=== PATIENT | female | born 1955 | race Caucasian/White ===

== ENCOUNTER 2019-06-03 10:33 | Emergency (ER) | payer OTHER ==
[~2019-06-03] VITALS: Ht 167.6 cm; Wt 64.4 kg
--- OUTSIDE RECORDS SUMMARY | 2019-06-03 10:36 | XMS REPORT ---
[facility] Address Unknown Phone Unavailable Care Team Providers Care Research Worker Kitchen Name Role Phone Unavailable Unavailable Payers Payer Name Policy Type Policy Number Effective Date Expiration Date Problems This patient has no known problems. Allergies, Adverse Reactions, Alerts Allergy Name Allergy Type Status Severity Reaction(s) Onset Date Inactive Date Treating Clinician Comments No Known Allergies DA Active U 2019-03-27 00:00:00 No Known Allergies DA Active U 2018-04-11 00:00:00 Medications This patient has no known medications. Results Test Description Test Time Test Comments Text Results Atomic Results Result Comments POTASSIUM 2019-04-04 12:26:00 POTASSIUM (test code=K) 3.0 mmol/L 3.5-5.1 BASIC METABOLIC [id number] 07:20:00* Test Item Value Reference Range Comments SODIUM (test code=NA) 132 mmol/L 136-145 RESULT VERIFIED BY REPEAT ANALYSIS POTASSIUM (test code=K) 2.6 mmol/L 3.5-5.1 Results called to [id number] by RUPERT 04/04/19 0720Critical results verified and read back by Nurse? Y CHLORIDE (test code=CL) 94.0 mmol/L 98-107 CARBON DIOXIDE (test code=CO2) 31.0 mmol/L 21-32 ANION GAP (test code=GAP) 9.6 10-20 GLUCOSE (test code=GLU) 92 mg/dL 74-106 BLOOD UREA NITROGEN (test code=BUN) 2 mg/dL 7-18 GLOMERULAR FILTRATION RATE (test code=GFR) > 60 mL/min >=60 Estimated GFR by using Modified MDRD formula.Chronic kidney disease is defined as either kidney damageor GFR <60 mL/min/1.73 m2 for >3 months. CREATININE (test code=CREAT) 0.30 mg/dL 0.55-1.02 Note change in reference range due to change in reagent. BUN/CREATININE RATIO (test code=BUN/CREA) 6.7 10-20 CALCIUM (test code=CA) 8.8 mg/dL 8.5-10.1 BASIC METABOLIC [id number] 09:23:00* Test Item Value Reference Range Comments SODIUM (test code=NA) 124 mmol/L 136-145 Results called to ESTEFANIA/NOF9132 by V.LAB.LDB 04/03/19 0920Critical results verified and read back by Nurse? Y POTASSIUM (test code=K) 3.5 mmol/L 3.5-5.1 CHLORIDE (test code=CL) 86.0 mmol/L 98-107 CARBON DIOXIDE (test code=CO2) 27.0 mmol/L 21-32 ANION GAP (test code=GAP) 14.5 10-20 GLUCOSE (test code=GLU) 96 mg/dL 74-106 BLOOD UREA NITROGEN (test code=BUN) 3 mg/dL 7-18 GLOMERULAR FILTRATION RATE (test code=GFR) > 60 mL/min >=60 Estimated GFR by using Modified MDRD formula.Chronic kidney disease is defined as either kidney damageor GFR <60 mL/min/1.73 m2 for >3 months. CREATININE (test code=CREAT) 0.40 mg/dL 0.55-1.02 Note change in reference range due to change in reagent. BUN/CREATININE RATIO (test code=BUN/CREA) 7.5 10-20 CALCIUM (test code=CA) 9.0 mg/dL 8.5-10.1 BASIC METABOLIC [id number] 07:30:00* Test Item Value Reference Range Comments SODIUM (test code=NA) 123 mmol/L 136-145 Results called to WENDY [id number] V.LAB.OA 04/02/19 0730Critical results verified and read back by Nurse? Y POTASSIUM (test code=K) 3.4 mmol/L 3.5-5.1 CHLORIDE (test code=CL) 88.0 mmol/L 98-107 CARBON DIOXIDE (test code=CO2) 24.0 mmol/L 21-32 ANION GAP (test code=GAP) 14.4 10-20 GLUCOSE (test code=GLU) 84 mg/dL 74-106 BLOOD UREA NITROGEN (test code=BUN) 6 mg/dL 7-18 GLOMERULAR FILTRATION RATE (test code=GFR) > 60 mL/min >=60 Estimated GFR by using Modified MDRD formula.Chronic kidney disease is defined as either kidney damageor GFR <60 mL/min/1.73 m2 for >3 months. CREATININE (test code=CREAT) 0.40 mg/dL 0.55-1.02 Note change in reference range due to change in reagent. BUN/CREATININE RATIO (test code=BUN/CREA) 15.0 10-20 CALCIUM (test code=CA) 8.8 mg/dL 8.5-10.1 [id number] 07:30:00* Test Item Value Reference Range Comments MAGNESIUM (test code=MAG) 1.9 mg/dL 1.8-2.4 [id number] 16:49:00* Test Item Value Reference Range Comments POTASSIUM (test code=K) 2.9 mmol/L 3.5-5.1 Results called to SIY0543 by V.LAB.SPR 04/01/19 1649Critical results verified and read back by Nurse? Y [id number] 16:49:00* Test Item Value Reference Range Comments MAGNESIUM (test code=MAG) 2.1 mg/dL 1.8-2.4 BASIC METABOLIC [id number] 07:32:00* Test Item Value Reference Range Comments SODIUM (test code=NA) 122 mmol/L 136-145 Results called to GFR5710 by V.LAB.KA 04/01/19 0730Critical results verified and read back by Nurse? Y POTASSIUM (test code=K) 2.7 mmol/L 3.5-5.1 Results called to PHJ0504 by V.LAB.KA 04/01/19 0731Critical results verified and read back by Nurse? Y CHLORIDE (test code=CL) 85.0 mmol/L 98-107 CARBON DIOXIDE (test code=CO2) 24.0 mmol/L 21-32 ANION GAP (test code=GAP) 15.7 10-20 GLUCOSE (test code=GLU) 82 mg/dL 74-106 BLOOD UREA NITROGEN (test code=BUN) 7 mg/dL 7-18 GLOMERULAR FILTRATION RATE (test code=GFR) > 60 mL/min >=60 Estimated GFR by using Modified MDRD formula.Chronic kidney disease is defined as either kidney damageor GFR <60 mL/min/1.73 m2 for >3 months. CREATININE (test code=CREAT) 0.30 mg/dL 0.55-1.02 Note change in reference range due to change in reagent. BUN/CREATININE RATIO (test code=BUN/CREA) 23.3 10-20 CALCIUM (test code=CA) 8.4 mg/dL 8.5-10.1 [id number] 07:32:00* Test Item Value Reference Range Comments MAGNESIUM (test code=MAG) 1.7 mg/dL 1.8-2.4 BASIC METABOLIC [id number] 18:43:00* Test Item Value Reference Range Comments SODIUM (test code=NA) 120 mmol/L 136-145 Results called to [id number] by Gabriel.LAB 03/31/19 1837Critical results verified and read back by Nurse? Y POTASSIUM (test code=K) 3.0 mmol/L 3.5-5.1 CHLORIDE (test code=CL) 84.0 mmol/L 98-107 CARBON DIOXIDE (test code=CO2) 26.0 mmol/L 21-32 ANION GAP (test code=GAP) 13.0 10-20 GLUCOSE (test code=GLU) 89 mg/dL 74-106 BLOOD UREA NITROGEN (test code=BUN) 9 mg/dL 7-18 GLOMERULAR FILTRATION RATE (test code=GFR) > 60 mL/min >=60 Estimated GFR by using Modified MDRD formula.Chronic kidney disease is defined as either kidney damageor GFR <60 mL/min/1.73 m2 for >3 months. CREATININE (test code=CREAT) 0.50 mg/dL 0.55-1.02 Note change in reference range due to change in reagent. BUN/CREATININE RATIO (test code=BUN/CREA) 18.0 10-20 CALCIUM (test code=CA) 8.6 mg/dL 8.5-10.1 BASIC METABOLIC [id number] 11:56:00* Test Item Value Reference Range Comments SODIUM (test code=NA) 119 mmol/L 136-145 Results called to [id number] by V.LAB.RAP 03/31/19 1154Critical results verified and read back by Nurse? Y POTASSIUM (test code=K) 3.5 mmol/L 3.5-5.1 CHLORIDE (test code=CL) 81.0 mmol/L 98-107 CARBON DIOXIDE (test code=CO2) 26.0 mmol/L 21-32 ANION GAP (test code=GAP) 15.5 10-20 GLUCOSE (test code=GLU) 94 mg/dL 74-106 BLOOD UREA NITROGEN (test code=BUN) 11 mg/dL 7-18 GLOMERULAR FILTRATION RATE (test code=GFR) > 60 mL/min >=60 Estimated GFR by using Modified MDRD formula.Chronic kidney disease is defined as either kidney damageor GFR <60 mL/min/1.73 m2 for >3 months. CREATININE (test code=CREAT) 0.50 mg/dL 0.55-1.02 Note change in reference range due to change in reagent. BUN/CREATININE RATIO (test code=BUN/CREA) 22.0 10-20 CALCIUM (test code=CA) 9.2 mg/dL 8.5-10.1 PT WAS A CODE JOSHUA, COME BACK LATER PER OBS. RNS RyLAB. 0719- CT HEAD/BRAIN W/O [id number] 06:00:00 Name: ZOEY SOLORZANO [facility] : 1955 Age/S: 63 / F [address] [facility] Unit #: [id number] Loc: [place] [address] Phys: Torey Hale MD Acct: [id number] Dis Date: Status: ADM IN PHONE #: [phone] Exam Date: 03/31/2019 0532 FAX #: [phone] Reason: S/P FALL EXAMS: CPT CODE: [id number] CT HEAD/BRAIN W/O CONT 50835 EXAM: - CT HEAD/BRAIN W/O CONT LOCATION: C3 HISTORY: 63 years-year old Female with S/P FALL TECHNIQUE: Computerized tomography images from the skull base to the vertex were obtained. Coronal and sagittal reformatted images are provided. This exam was performed according to our departmental dose- optimization program, which includes automated exposure control, adjustment of the mA and/or kV according to patient size and/or use of iterative reconstruction technique COMPARISON: None FINDINGS: Brain: The brain parenchymal architecture is unremarkable. The brain parenchyma is age appropriate. There is no e vidence of an acute territorial infarct. Hemorrhage: There i s no CT evidence of acute intracranial hemorrhage. Mass/edema: The re is no CT evidence of mass effect, midline shift, or parenchymal edema. Ventricles: There is no evidence of hydrocephalus. B ones: There is no evidence of acute displaced calvarial fracture. Sinuses: The visualized portions of the paranasal sinuses and mastoid air cells are free of significant opacification. Other/Soft Tissues: Unremarkable. IMPRESSION: 1. No CT evidence o f acute intracranial abnormality. PAGE 1 Signed Report (CONTINUED) Name: ZOEY SOLORZANO [facility] : 1955 Age/S: 63 / F [address] Unit #: [id number] [place] [address] Phys: Torey Hale MD Acct: [id number] Dis Date: Status: ADM IN PHONE #: [phone] Exam Date: 03/31/2019 0532 FAX #: [phone] Reason: S/P FALL EXAMS: CPT CODE: [id number] CT HEAD/BRAIN W/O CONT 37898 <Continued> at 0600 Reported and signed by: Dexter Ram M.D. CC: Torey Hale MD; Loulou Jones MD; Dr. Alem Triana; Ana Lilia Lugo MD Technologist:Christoph Chapin, RT(R)(CT) CTDI: DLP: Trnscb Date/Time: 03/31/2019 (06) KrishnaHV2 Orig Print D/T: S: 03/31/2019 (0603) CTDI: DLP: PAGE 2 Signed Report [id number] 21:51:00* Test Item Value Reference Range Comments SODIUM (test code=NA) 118 mmol/L 136-145 Results called to [id number] by V.LAB. 03/30/19 2151Critical results verified and read back by Nurse? Y [id number] 20:38:00* Test Item Value Reference Range Comments GLUBED (test code=GLUBED) 158 mg/dL 74-106 Performed by certified scrubber operator at [facility] UR NA,[id number] 19:27:00* Test Item Value Reference Range Comments UR NA,RANDOM (test code=ITA) 125 mmol/L 20-110 UR OSMOLALITY [id number] 19:27:00* Test Item Value Reference Range Comments UR OSMOLALITY RANDOM (test code=OSMOU) 424 mOsm/kg 48-962 UR NA,[id number] 19:11:00* Test Item Value Reference Range Comments UR NA,RANDOM (test code=ITA) 125 mmol/L 20-110 UR OSMOLALITY [id number] 19:11:00* Test Item Value Reference Range Comments UR OSMOLALITY RANDOM (test code=OSMOU) mOsm/kg 48-962 BASIC METABOLIC [id number] 16:22:00* Test Item Value Reference Range Comments SODIUM (test code=NA) 117 mmol/L 136-145 Results called to [id number] by V.LAB. 03/30/19 1622Critical results verified and read back by Nurse? Y POTASSIUM (test code=K) 3.4 mmol/L 3.5-5.1 CHLORIDE (test code=CL) 78.0 mmol/L 98-107 CARBON DIOXIDE (test code=CO2) 26.0 mmol/L 21-32 ANION GAP (test code=GAP) 16.4 10-20 GLUCOSE (test code=GLU) 139 mg/dL 74-106 BLOOD UREA NITROGEN (test code=BUN) 6 mg/dL 7-18 GLOMERULAR FILTRATION RATE (test code=GFR) > 60 mL/min >=60 Estimated GFR by using Modified MDRD formula.Chronic kidney disease is defined as either kidney damageor GFR <60 mL/min/1.73 m2 for >3 months. CREATININE (test code=CREAT) 0.40 mg/dL 0.55-1.02 Note change in reference range due to change in reagent. BUN/CREATININE RATIO (test code=BUN/CREA) 15.0 10-20 CALCIUM (test code=CA) 9.2 mg/dL 8.5-10.1 - XR CHEST 2 [id number] 15:58:00 FAX: Loulou Humphries MD [phone] [place]: St: ADM FAX: Ree Lynn VASCULAR ULTRASOUND TECHNOLOGIST FAX: Alem Lima [phone] FAX: Ana Lilia Holguin [phone] Name: JULIAN SOLORZANO [facility] : 1955 Age/S: 63/F [address] [facility] Unit #: [id number] Loc: V.3 [address] [place] [address] Phys: Ree Dominique NP Acct: [id number] Dis Date: Status: ADM IN PHONE #: [phone] Exam D ate: 03/30/2019 1052 FAX #: [phone] Reason: S OB, COPD EXAMS: CPT CODE: [id number] XR CHEST 2 V 81480 HISTORY: Shortness of breath, COPD TECHNIQUE: PA and lateral chest x-ray; submitted for interpretation at 1555 hours. COMPARISON: 03/27/19 FINDINGS: No airspace consolidation or pleural effusion. Mild pulmonary hyperin flation, possible COPD. Normal heart size. Mediastinal silhouette is unrem arkable. Thoracic spondylosis. IMPRESSION: No acute findings or significant interval change. at 1558 Reported and si gned by: Mana Banks D.O. CC: Loulou Jones MD; Laura Dominique NP; Dr. Alem Triana; Ana Lilia Lugo MD Technologist: PRIMITIVO MORTENSEN RT[facility]R) [facility] Date/Time/By: 03/30/2019 (1551) : By: [email or web address] O rig Print D/T: S: 03/30/2019 (8424) PAGE 1 Signed Report COMPREHENSIVE METABOLIC [id number] 08:18:00* Test Item Value Reference Range Comments SODIUM (test code=NA) 126 mmol/L 136-145 POTASSIUM (test code=K) 3.3 mmol/L 3.5-5.1 CHLORIDE (test code=CL) 89.0 mmol/L 98-107 CARBON DIOXIDE (test code=CO2) 29.0 mmol/L 21-32 ANION GAP (test code=GAP) 11.3 10-20 GLUCOSE (test code=GLU) 79 mg/dL 74-106 BLOOD UREA NITROGEN (test code=BUN) 6 mg/dL 7-18 GLOMERULAR FILTRATION RATE (test code=GFR) > 60 mL/min >=60 Estimated GFR by using Modified MDRD formula.Chronic kidney disease is defined as either kidney damageor GFR <60 mL/min/1.73 m2 for >3 months. CREATININE (test code=CREAT) 0.50 mg/dL 0.55-1.02 Note change in reference range due to change in reagent. BUN/CREATININE RATIO (test code=BUN/CREA) 12.0 10-20 TOTAL PROTEIN (test code=PROT) 7.4 gram/dL 6.4-8.2 ALBUMIN (test code=ALB) 3.4 g/dL 3.4-5.0 GLOBULIN (test code=GLOB) 4.0 gram/dL 2.7-4.2 ALBUMIN/GLOBULIN RATIO (test code=A/G) 0.9 0.75-1.50 CALCIUM (test code=CA) 9.7 mg/dL 8.5-10.1 BILIRUBIN TOTAL (test code=BILT) 0.40 mg/dL 0.0-1.0 SGOT/AST (test code=AST) 20 IUnit/L 15-37 SGPT/ALT (test code=ALT) 26 IUnit/L 12-78 ALKALINE PHOSPHATASE TOTAL (test code=ALKP) 81 IUnit/L 45-117 Note change in reference range due to change in reagent. [id number] 16:36:00* Test Item Value Reference Range Comments GLUBED (test code=GLUBED) 131 mg/dL 74-106 Performed by certified scrubber operator at [facility] [id number] 12:18:00* Test Item Value Reference Range Comments GLUBED (test code=GLUBED) 99 mg/dL 74-106 Performed by certified scrubber operator at [facility] - CT MAXIFAC W/O [id number] 09:12:00 Name: ZOEY SOLORZANO [facility] : 1955 Age/S: 63 / F [address] Unit #: [id number] Loc: [place] [address] Phys: Damien Vann MD Acct: [id number] Dis Date: Status: ADM IN PHONE #: [phone] Exam Date: 03/29/2019 0854 FAX #: [phone] Reason: rhinosinusitis EXAMS: CPT CODE: [id number] [place] MAXIF[place] [address] HISTORY: COPD and hypoxia and rhinosinusitis. COMPARISON: None available. CT facial bones without contrast: Automated exposure control. Sinuses are clear of air-fluid levels. 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 Mild mucosal thickening of the left maxillary sinus. The thickness measured up to 6.3 mm on the floor and along the lateral wall measuring 5 mm. Maxillary ostia are widely patent. No isaias bullosa is noted. Nasal septal deviation is slight towards the left. No polyps are noted. TMJ are well situated. Mastoid air cells are clear with nonspecific sclerosis. No air-fluid levels are noted. Intraorbital contents are unremarkable. No intraconal air or retrobulbar hemorrhage. Symmetrical fossa of Rosenmueller. IMPRESSION: The sinuses are clear without air-fluid levels. Mild mucosal thickening of the left maxillary sinus as described along the floor as well along its lateral wall measuring up to 6.3 mm in thickness. Maxillary ostia are widely patent bilaterally. Calcified osteoma measuring 8.6 mm in the lateral left frontal sinus. No isaias bullosa. Nasal septal deviation is slight towards the left. at 0912 Reported and signed by: Kike Parada M.D. CC: Loulou Jones MD; Damien Vann M.D.; Dr. Sanju Triana; Ana Lilia Lugo MD Technologist:Nilsa Triana,RT(R),CT CTDI: DLP: T rnscb Date/Time: 03/29/2019 (911) t.SDR.TH4 Orig Print D /T: S: 03/29/2019 (915) CTDI: DLP: PAGE 1 Signed Report [id number] 07:25:00* Test Item Value Reference Range Comments GLUBED (test code=GLUBED) 104 mg/dL 74-106 Performed by certified scrubber operator at [facility] [id number] 20:22:00* Test Item Value Reference Range Comments GLUBED (test code=GLUBED) 185 mg/dL 74-106 Performed by certified scrubber operator at [facility] [id number] 16:45:00* Test Item Value Reference Range Comments GLUBED (test code=GLUBED) 107 mg/dL 74-106 Performed by certified scrubber operator at [facility] [id number] 11:49:00* Test Item Value Reference Range Comments GLUBED (test code=GLUBED) 116 mg/dL 74-106 Performed by certified scrubber operator at [facility] [id number] 11:19:00* Test Item Value Reference Range Comments GLUBED (test code=GLUBED) 110 mg/dL 74-106 Performed by certified scrubber operator at [facility] BASIC METABOLIC [id number] 06:30:00* Test Item Value Reference Range Comments SODIUM (test code=NA) 134 mmol/L 136-145 RESULT VERIFIED BY REPEAT ANALYSIS POTASSIUM (test code=K) 3.3 mmol/L 3.5-5.1 CHLORIDE (test code=CL) 101.0 mmol/L 98-107 CARBON DIOXIDE (test code=CO2) 25.0 mmol/L 21-32 ANION GAP (test code=GAP) 11.3 10-20 GLUCOSE (test code=GLU) 126 mg/dL 74-106 BLOOD UREA NITROGEN (test code=BUN) 7 mg/dL 7-18 GLOMERULAR FILTRATION RATE (test code=GFR) > 60 mL/min >=60 Estimated GFR by using Modified MDRD formula.Chronic kidney disease is defined as either kidney damageor GFR <60 mL/min/1.73 m2 for >3 months. CREATININE (test code=CREAT) 0.40 mg/dL 0.55-1.02 Note change in reference range due to change in reagent. BUN/CREATININE RATIO (test code=BUN/CREA) 17.5 10-20 CALCIUM (test code=CA) 9.2 mg/dL 8.5-10.1 B-TYPE NATRIURETIC [id number] 13:48:00* Test Item Value Reference Range Comments B-TYPE NATRIURETIC PEPTIDE (test code=BNP) 48.62 pgram/mL 0-100 CBC W/O [id number] 13:09:00* Test Item Value Reference Range Comments WHITE BLOOD CELL (test code=WBC) 10.6 K/mm3 4.5-12.5 RED BLOOD CELL (test code=RBC) 3.94 mill/mm3 3.7-5.2 HEMOGLOBIN (test code=HGB) 12.7 gram/dL 11.5-15.5 HEMATOCRIT (test code=HCT) 37.5 % 36.0-46.0 MEAN CELL VOLUME (test code=MCV) 95.2 fL 80-98 MEAN CELL HGB (test code=MCH) 32.2 picogram 27.0-33.0 MEAN CELL HGB CONCETRATION (test code=MCHC) 33.9 gram/dL 33.0-36.0 RED CELL DISTRIBUTION WIDTH (test code=RDW) 12.4 % 11.6-16.2 PLATELET COUNT (test code=PLT) 395 K/mm3 150-450 MEAN PLATELET VOLUME (test code=MPV) 9.2 fL 6.7-11.0 CBC W/O [id number] 12:56:00* Test Item Value Reference Range Comments WHITE BLOOD CELL (test code=WBC) K/mm3 4.5-12.5 RED BLOOD CELL (test code=RBC) mill/mm3 3.7-5.2 HEMOGLOBIN (test code=HGB) 12.7 gram/dL 11.5-15.5 HEMATOCRIT (test code=HCT) 37.5 % 36.0-46.0 MEAN CELL VOLUME (test code=MCV) fL 80-98 MEAN CELL HGB (test code=MCH) picogram 27.0-33.0 MEAN CELL HGB CONCETRATION (test code=MCHC) gram/dL 33.0-36.0 RED CELL DISTRIBUTION WIDTH (test code=RDW) % 11.6-16.2 PLATELET COUNT (test code=PLT) K/mm3 150-450 MEAN PLATELET VOLUME (test code=MPV) fL 6.7-11.0 BASIC METABOLIC [id number] 12:48:00* Test Item Value Reference Range Comments SODIUM (test code=NA) 129 mmol/L 136-145 POTASSIUM (test code=K) 3.2 mmol/L 3.5-5.1 CHLORIDE (test code=CL) 91.0 mmol/L 98-107 CARBON DIOXIDE (test code=CO2) 28.0 mmol/L 21-32 ANION GAP (test code=GAP) 13.2 10-20 GLUCOSE (test code=GLU) 86 mg/dL 74-106 BLOOD UREA NITROGEN (test code=BUN) 6 mg/dL 7-18 GLOMERULAR FILTRATION RATE (test code=GFR) > 60 mL/min >=60 Estimated GFR by using Modified MDRD formula.Chronic kidney disease is defined as either kidney damageor GFR <60 mL/min/1.73 m2 for >3 months. CREATININE (test code=CREAT) 0.50 mg/dL 0.55-1.02 Note change in reference range due to change in reagent. BUN/CREATININE RATIO (test code=BUN/CREA) 12.0 10-20 CALCIUM (test code=CA) 9.6 mg/dL 8.5-10.1 [id number] 12:48:00* Test Item Value Reference Range Comments TROPONIN-I (test code=TROPI) <0.015 ng/mL 0-0.045 BASIC METABOLIC [id number] 12:34:00* Test Item Value Reference Range Comments SODIUM (test code=NA) 129 mmol/L 136-145 POTASSIUM (test code=K) 3.2 mmol/L 3.5-5.1 CHLORIDE (test code=CL) 91.0 mmol/L 98-107 CARBON DIOXIDE (test code=CO2) mmol/L 21-32 ANION GAP (test code=GAP) 10-20 GLUCOSE (test code=GLU) mg/dL 74-106 BLOOD UREA NITROGEN (test code=BUN) mg/dL 7-18 GLOMERULAR FILTRATION RATE (test code=GFR) mL/min >=60 CREATININE (test code=CREAT) mg/dL 0.55-1.02 BUN/CREATININE RATIO (test code=BUN/CREA) 10-20 CALCIUM (test code=CA) mg/dL 8.5-10.1 [id number] 12:34:00* Test Item Value Reference Range Comments TROPONIN-I (test code=TROPI) ng/mL 0-0.045 - XR CHEST 1 [id number] 11:36:00 FAX: Anjel Robert MD [phone] [place]: St: REG FAX: Alem Lima [phone] FAX: Ana Lilia Holguin [phone] Name: ZOEY SOLORZANO [facility] : 1955 Age/S: 63/F [address] Unit #: [id number] Loc: [place] [address] Phys: Anjel Robert MD Acct: [id number] Dis Date: Status: REG ER PH ONE #: [phone] Exam Date: 03/27/2019 1127 FAX #: [phone] Reason: Shortness of Breath EXAMS: CPT CODE: [id number] XR CHEST 1 V 35050 HISTORY: Short ness of breath. COMPARISON: March 13, 2014. No acute infiltrates, effusion or congestion is noted. Hyperinflation. The cardiac and mediastinal silhouette are within normal limits. I MPRESSION: No acute infiltrates, effusion or congestion. at 1136 Reported and signed by: Kike Parada M.D. CC: Anjel Robert MD; Dr. Alem Triana; Ana Lilia Lugo MD Technologist: RT TESS(R) Trnscrd Date/Time/By: 11/2018 (1135) : By: [email or web address] Orig Print D/T: S: 03/27/2019 (4554) PAGE 1 Signed Report
[2019-06-03] MEDS ORDERED: IPRATROPIUM BROMIDE 0.02% 2.5 ML NEB NEB STA (10:38)
[2019-06-03] MEDS ORDERED: METHYLPREDNISOLONE SOD SUCC 125 MG/2ML VIAL IV STA (10:38)
[2019-06-03] MEDS ORDERED: ALBUTEROL SULF 0.083% NEB SOLN 3 ML NEB NEB STA (10:38)
--- NOTE | 2019-06-03 10:57 | NUR ---
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
[2019-06-03] MEDS ORDERED: MAGNESIUM SULFATE 2GM/50ML 50 ML IV ONE (11:30)
--- NOTE | 2019-06-03 12:10 | Diagnostic Imaging Report ---
EXAMINATION: CHEST 2 VIEWS INDICATION: Shortness of breath COMPARISON: None FINDINGS: TUBES and LINES: None. LUNGS: The lungs are mildly hyperinflated. Mild biapical pleural parenchymal thickening/scarring. No focal consolidation or pulmonary edema. PLEURA: No pleural effusion or pneumothorax. HEART AND MEDIASTINUM: The cardiomediastinal silhouette is normal in size and contour. BONES AND SOFT TISSUES: Compression deformity at likely T12 resulting in focal kyphosis. UPPER ABDOMEN: No free air under the diaphragm. IMPRESSION: Hyperinflated lungs. No focal pneumonia or pulmonary edema. Age-indeterminate compression fracture at T12. If the patient has corresponding point tenderness, MRI could be considered to assess for acuity and candidacy for vertebral augmentation. Signed by: Mitchell Pryor MD on 06/03/2019 12:07 PM
[2019-06-03] MEDS ORDERED: ALBUTEROL/IPRATROPIUM 3 ML NEB NEB ONE (12:40)
[2019-06-03] MEDS ORDERED: ALBUTEROL/IPRATROPIUM 3 ML NEB ONE (12:43)
== END 2019-06-03 13:08 | disposition home or self-care (01) ==
LOC: ER 10:33
DX: R06.00 Dyspnea, unspecified (principal); R05 Cough; J44.1 Chronic obstructive pulmonary disease with (acute) exacerbation
CPT/HCPCS: 71046; 94640 ×2; 99284; J2930; J3475